=== PATIENT | male | born 1960 | race Caucasian/White ===

== ENCOUNTER 2019-04-24 11:34 | Emergency (ER) | payer BC ==
[2019-04-24] MEDS ORDERED: HYDROmorphone 0.5 MG/0.5 ML Syringe IM ONE (12:23)
[2019-04-24] MEDS ORDERED: Ketorolac 60 MG/2 ML SDV IM ONE (12:23)
--- NOTE | 2019-04-24 12:34 | EDM.PDOC ---
ED HPI GENERAL MEDICAL PROBLEM - General Chief Complaint: ENT Problem Stated Complaint: TOOTH INFECTION Time Seen by Provider: 04/24/19 11:51 Source of Information: Reports: Patient, RN Notes Reviewed History Limitations: Reports: No Limitations - History of Present Illness INITIAL COMMENTS - FREE TEXT/NARRATIVE: Patient is a 59-year-old male who presents to the ED for a dental problem. The patient notes that this tooth (left lower molar) started getting sensitive around 1 week ago, and the crown fell off Thursday night, he said he had a pretty rough night that night, and he was in contact with his dentist on Thursday, and the dentist was able to see him on for evaluation. Patient was started on clindamycin and Tylenol 3 for pain management. Patient states that Thursday was not much better, and he went to the walk-in clinic on Thursday and saw provider his antibiotic was switched to Augmentin, and he was given a dose of Rocephin IM for further management. Patient states that he is taking the Tylenol 3 as directed along with 200 mg ibuprofen every so often for further pain relief, nothing seems to really be helping much. He try to go to the walk-in clinic this morning again for further management however they sent him here as they state they could not do anything more for his pain. He states that the pain is a pretty steady 5 or 6, but does have a pretty sharp component where it spikes to an 8 or 9 out of 10. His last dose of Tylenol 3 was at 5:30 AM this morning. Tooth/Teeth Pain Score (Numeric/FACES): 8 - Related Data Allergies Allergy/AdvReac Type Severity Reaction Status Date / Time No Known Allergies Allergy Verified 04/24/19 11:46 Home Meds: Home Meds Acetaminophen/oxyCODONE [Percocet 325-5 MG] 1 each PO Q6H PRN #12 tab 04/24/19 [ Rx] Amoxicillin/Potassium Clav [Augmentin 875-125 Tablet] 1 tab PO ASDIRECTED [History] Clindamycin HCl 150 mg PO Q6H 04/24/19 [History] Naproxen [Naprosyn] 500 mg PO Q12HR #14 tab 04/24/19 [Rx] Past Medical History - Past Health History Medical/Surgical History: Denies Medical/Surgical History - Past Surgical History HEENT Surgical History: Reports: Other (See Below) Other HEENT Surgeries/Procedures: dental pain left lower molar Social & Family History - Tobacco Use Smoking Status *Q: Never Smoker - Caffeine Use Caffeine Use: Reports: Coffee - Recreational Drug Use Recreational Drug Use: No ED ROS ENT - Review of Systems Review Of Systems: See Below Constitutional: Denies: Fever, Chills, Decreased Appetite HEENT: Reports: Dental Pain. Denies: Sinus Problem, Throat Pain Respiratory: Denies: Shortness of Breath Cardiovascular: Denies: Chest Pain GI/Abdominal: Denies: Abdominal Pain, Nausea, Vomiting Musculoskeletal: Denies: Neck Pain Neurological: Denies: Headache ED EXAM, ENT - Physical Exam Exam: See Below Exam Limited By: No Limitations General Appearance: Alert, WD/WN, No Apparent Distress Eye Exam: Bilateral Eye: EOMI, Normal Inspection, PERRL Ears: Normal External Exam Nose: Normal Inspection Mouth/Throat: Normal Inspection, Normal Gums, Normal Lips, Normal Oropharynx, Dental Abcess (Left lower molar, the gumline is erythematous, there does appear to be swelling in the left lower mandible proximal to the tooth that is causing issues.). No: Drooling, Dry Mucous Membrane, Tonsillar Swelling, Trismus, Uvular Deviation Head: Atraumatic, Normocephalic Neck: Normal Inspection, Supple, Tender Lateral (Left lower mandible near tooth that is bothersome) Respiratory/Chest: No Respiratory Distress, Lungs Clear, Normal Breath Sounds, No Accessory Muscle Use, Chest Non-Tender Cardiovascular: Normal Peripheral Pulses, Regular Rate, Rhythm, No Murmur GI/Abdominal: Normal Bowel Sounds, Soft, Non-Tender, No Distention, No Mass Extremities: Normal Inspection, Normal Capillary Refill Neurological: Alert, Oriented, Normal Cognition, No Motor/Sensory Deficits Psychiatric: Normal Affect, Normal Mood Skin: Warm, Dry, Intact, Normal Color, No Rash Course - Vital Signs Last Recorded V/S: Last Vital Signs Temp 97.6 F 04/24/19 11:52 Pulse 58 L 04/24/19 11:52 Resp 20 04/24/19 11:52 BP 177/86 H 04/24/19 11:52 Pulse Ox 98 04/24/19 11:52 - Orders/Labs/Meds Meds: Medications Discontinued Medications Generic Name Dose Route Start Last Admin Trade Name Freq PRN Reason Stop Dose Admin Hydromorphone HCl 0.5 mg 04/24/19 12:23 Dilaudid IM 04/24/19 12:24 ONETIME ONE Ketorolac Tromethamine 60 mg 04/24/19 12:23 Toradol IM 04/24/19 12:24 ONETIME ONE - Re-Assessments/Exams Free Text/Narrative Re-Assessment/Exam: 04/24/19 12:37 Patient presents to the ED for evaluation of his dental complaint. I have offered to do a soft tissue neck CT to rule out further abscess in nature, he declined at this time. He will be reassessed in a few days if things do not seem to get much better after the change in antibiotics. I did order 60 mg IM Toradol and 0.5 mg IM Dilaudid for further pain management. We will switch his pain medications to Percocet and will give him some Naprosyn as well. Departure - Departure Time of Disposition: 12:38 Disposition: Home, Self-Care 01 Condition: Fair Clinical Impression: Dental abscess - Discharge Information *PRESCRIPTION DRUG MONITORING PROGRAM REVIEWED*: No *COPY OF PRESCRIPTION DRUG MONITORING REPORT IN PATIENT THONY: No Instructions: Dental Abscess, [id number] Referrals: Reggie Adams MD [Primary Care Provider] - Additional Instructions: You have been evaluated in the ED for your dental pain. Please continue take the Augmentin as previously prescribed. You were given a prescription for Naprosyn, Please take 1 tab every 12 hours for pain relief. You were given a prescription for Percocet, 1 tab every 6 hours for pain. Your prescription was electronically sent to [facility] pharmacy located near [facility], this pharmacy is only open from 12 to 4 PM today , you will need to go there during this timeframe to obtain this medication and take as prescribed. You may also want to start taking Omeprazole, and over the counter stomach acid suppressant to help prevent any sort of NSAID induced ulcers. However I do not suspect that you have one at this time, it is not a bad idea to make sure that you do not develop one while taking increased amount of NSAIDs. You may use hot pack/ ice packs to the affected area as tolerated in 15-20 minute intervals. If your symptoms are not much better in roughly 2 days time, recommend you consider getting a soft tissue neck CT to further evaluate extent of infection, or if you should develop any other systemic illness type symptoms like fever, worsening chills, etc. Please return to the ED if your symptoms change or worsen. Sepsis Event Note - Evaluation Sepsis Screening Result: No Definite Risk - Focused Exam Vital Signs: Vital Signs Temp Pulse Resp BP Pulse Ox 04/24/19 11:52 97.6 F 58 L 20 177/86 H 98 Date Exam was Performed: 04/24/19 Time Exam was Performed: 12:29
== END 2019-04-24 13:23 | disposition home or self-care (01) ==
LOC: JD.ED 11:34
DX: K04.7 Periapical abscess without sinus (principal)
CPT/HCPCS: 96372; 99283; J1170; J1885

== ENCOUNTER 2021-03-02 08:08 | Emergency (ER) | payer BC ==
[2021-03-02] MEDS ORDERED: Bupivacaine 0.5% 10 ML SDV INJECT ONE (08:34)
--- NOTE | 2021-03-02 08:39 | EDM.PDOC ---
ED HPI GENERAL MEDICAL PROBLEM - General Chief Complaint: ENT Problem Stated Complaint: DENTAL COMPLAINT Time Seen by Provider: 03/02/21 08:21 Source of Information: Reports: Patient History Limitations: Reports: No Limitations - History of Present Illness INITIAL COMMENTS - FREE TEXT/NARRATIVE: The patient presents with left lower dental pain. He had a crown placed in that area over a molar about 6 weeks ago. He then started to have some hot and cold sensitivity over a week ago and then on started having pain to the tooth in front of the crown. He went to the walk in clinic yesterday and was given amoxicillin and tramadol. The tramadol did not help last night and he did not get any sleep. He has no fever or chills. Onset: Gradual Duration: Day(s): Location: Reports: Other (Left lower jaw) Quality: Reports: Sharp Severity: Severe Improves with: Reports: None Worsens with: Reports: None Associated Symptoms: Reports: No Other Symptoms Left Jaw Pain Score (Numeric/FACES): 10 - Related Data Allergies Allergy/AdvReac Type Severity Reaction Status Date / Time No Known Allergies Allergy Verified 03/02/21 08:13 Home Meds: Home Meds Amoxicillin 500 mg PO TID 03/02/21 [History] oxyCODONE HCl/Acetaminophen [Percocet 5-325 mg Tablet] 1 - 2 each PO Q6HR PRN #30 tablet 03/02/21 [Rx] traMADol [Ultram] 50 mg PO Q6H PRN 03/02/21 [History] Past Medical History - Past Health History Medical/Surgical History: Denies Medical/Surgical History - Past Surgical History HEENT Surgical History: Reports: Other (See Below) Other HEENT Surgeries/Procedures: dental pain left lower molar Social & Family History - Tobacco Use Tobacco Use Status *Q: Never Tobacco User - Caffeine Use Caffeine Use: Reports: Coffee - Recreational Drug Use Recreational Drug Use: No ED ROS ENT - Review of Systems Review Of Systems: See Below Constitutional: Reports: No Symptoms HEENT: Reports: Dental Pain (Left lower jaw) Respiratory: Reports: No Symptoms Cardiovascular: Reports: No Symptoms Endocrine: Reports: No Symptoms GI/Abdominal: Reports: No Symptoms : Reports: No Symptoms Musculoskeletal: Reports: No Symptoms Skin: Reports: No Symptoms Neurological: Reports: No Symptoms ED EXAM, ENT - Physical Exam Exam: See Below Exam Limited By: No Limitations General Appearance: Alert, No Apparent Distress Ears: Normal External Exam Nose: Normal Inspection Mouth/Throat: Other (Pain upon palpation to the 2nd molar on the left lower jaw. There is no erythema or edema noted.) Head: Atraumatic, Normocephalic Neck: Normal Inspection, Supple, Non-Tender Respiratory/Chest: No Respiratory Distress Extremities: Normal Inspection Neurological: Alert, Oriented Course - Vital Signs Last Recorded V/S: Last Vital Signs Temp 97.6 F 03/02/21 08:13 Pulse 55 L 03/02/21 08:13 Resp 14 03/02/21 08:13 BP 191/111 H 03/02/21 08:13 Pulse Ox 98 03/02/21 08:13 - Orders/Labs/Meds Meds: Medications Discontinued Medications Generic Name Dose Route Start Last Admin Trade Name Demetra PRN Reason Stop Dose Admin Bupivacaine HCl 10 ml 03/02/21 08:34 Bupivacaine 0.5% 10 Ml Sdv INJECT 03/02/21 08:35 ONETIME ONE - Re-Assessments/Exams Free Text/Narrative Re-Assessment/Exam: 03/02/21 08:38 I had the patient put some topical numbing medication over the angle of the left lower jaw. 03/02/21 09:09 I used sensorcaine 0.5% and injected 2mls in the left inferior alveolar nerve to do a block. He had some relief of the pain. I will get him on some percocets. Departure - Departure Time of Disposition: 09:10 Disposition: Home, Self-Care 01 Condition: Good Clinical Impression: Pain, dental - Discharge Information *PRESCRIPTION DRUG MONITORING PROGRAM REVIEWED*: Not Applicable *COPY OF PRESCRIPTION DRUG MONITORING REPORT IN PATIENT THONY: Not Applicable Prescriptions: oxyCODONE HCl/Acetaminophen [Percocet 5-325 mg Tablet] 1 - 2 each PO Q6HR PRN #30 tablet PRN Reason: Pain Referrals: PCP,None [Primary Care Provider] - Forms: ED Department Discharge Additional Instructions: Take your antibiotic as prescribed. Stop taking the tramadol and take the percocet. Follow up with your dentist next week. Please return if you are worse. Sepsis Event Note (ED) - Focused Exam Vital Signs: Vital Signs Temp Pulse Resp BP Pulse Ox 03/02/21 08:13 97.6 F 55 L 14 191/111 H 98
== END 2021-03-02 09:30 | disposition home or self-care (01) ==
LOC: JD.ED 08:08
DX: K08.89 Other specified disorders of teeth and supporting structures (principal)
CPT/HCPCS: 64400; 99282; J3490